=== PATIENT | female | born 1935 | race African-American/Black ===

== ENCOUNTER 2020-04-25 14:11 | Outpatient (REF) | payer MEDICARE, SELFPAY ==
[2020-04-25 16:40] LABS: Estimated Average Glucose 180 mg/dL; Hemoglobin A1c % 7.9 %
[2020-04-25 16:57] LABS: Alanine Aminotransferase 16 U/L (0-31); Albumin Level 4.5 g/dL (3.5-5.0); Alkaline Phosphatase 58 U/L (39-117); Anion Gap 14 (12-20); Aspartate Amino Transferase 16 U/L (5-31); Bilirubin Total 0.6 mg/dL (0.0-1.0); Blood Urea Nitrogen 17 mg/dL (9-16); Calcium 8.9 mg/dL (8.4-10.2); Carbon Dioxide 27 mmol/L (22-29); Chloride 105 mmol/L (96-108); Cholesterol 161 mg/dL; Creatinine Urine 149.79 mg/dL; Estimated Glomerular Filt Rate > 60; Glucose Fasting 93 mg/dL (60-99); HDL Cholesterol 48 mg/dL; LDL Cholesterol Calculated 97 mg/dl; Microalbum/Creatinine Ratio Ur 9.3 ug/mg cr; Potassium 4.4 mmol/L (3.3-5.1); Sodium 142 mmol/L (135-145); Triglycerides 81 mg/dL
[2020-04-25 17:17] LABS: TSH reflex Free T4 2.23 uIU/mL (0.32-4.0); Vitamin D 25-OH Total 54.3 ng/mL (>30)
[2020-04-26 04:28] LABS: SARS COV2 IgG Positive (Negative)
== END 2020-04-25 14:12 | disposition home or self-care (01) ==
LOC: HO.HMGCLDS 14:11
PROVIDERS: PCP Nurse Practitioner Family; Visit Provider Nurse Practitioner Family
DX: U07.1 COVID-19 (principal); E78.5 Hyperlipidemia, unspecified; I10 Essential (primary) hypertension; E11.9 Type 2 diabetes mellitus without complications; Z01.84 Encounter for antibody response examination; Z78.0 Asymptomatic menopausal state
CPT/HCPCS: 36415; 80053; 80061; 82043; 82306; 83036; 84443; 86769

== ENCOUNTER 2020-09-19 14:53 | Outpatient (REF) | payer MEDICARE, SELFPAY ==
--- NOTE | ~2020-09-19 | XR_ITS ---
EXAMINATION: RIGHT SHOULDER AND LEFT RIB X-RAYS CLINICAL INFORMATION: Chest and right shoulder pain COMPARISON: None TECHNIQUE: 3 views of the right shoulder, one view of the chest and 3 views of the left ribs FINDINGS: Right shoulder: Bone alignment is normal. No fracture or dislocation is seen. Degenerative changes acromioclavicular joint. Minimal degenerative changes at the glenohumeral joint. Degenerative changes of the greater tuberosity. Normal soft tissues. Chest and left RIBS: The cardiac and mediastinal contours are normal. There is question of a pulmonary nodule measuring approximately 6 mm in between the right anterior second and third ribs. The lungs are otherwise clear. There is no pleural effusion or pneumothorax. No rib fracture is seen. There are mild degenerative changes of the spine. XR/XR ribs LT min 3V w [id number] IMPRESSION: Right shoulder: Mild arthritis. Chest and left rib x-rays: No rib fracture. Question right pulmonary nodule.
--- NOTE | ~2020-09-19 | XR_ITS ---
EXAMINATION: RIGHT SHOULDER AND LEFT RIB X-RAYS CLINICAL INFORMATION: Chest and right shoulder pain COMPARISON: None TECHNIQUE: 3 views of the right shoulder, one view of the chest and 3 views of the left ribs FINDINGS: Right shoulder: Bone alignment is normal. No fracture or dislocation is seen. Degenerative changes acromioclavicular joint. Minimal degenerative changes at the glenohumeral joint. Degenerative changes of the greater tuberosity. Normal soft tissues. Chest and left RIBS: The cardiac and mediastinal contours are normal. There is question of a pulmonary nodule measuring approximately 6 mm in between the right anterior second and third ribs. The lungs are otherwise clear. There is no pleural effusion or pneumothorax. No rib fracture is seen. There are mild degenerative changes of the spine. XR/XR shoulder RT min 2V IMPRESSION: Right shoulder: Mild arthritis. Chest and left rib x-rays: No rib fracture. Question right pulmonary nodule.
== END 2020-09-19 14:54 | disposition home or self-care (01) ==
LOC: HO.HMGCX 14:53
PROVIDERS: PCP Nurse Practitioner Family; Visit Provider Nurse Practitioner Family
DX: R07.89 Other chest pain (principal); M25.511 Pain in right shoulder
CPT/HCPCS: 71101; 73030